=== PATIENT | male | born 1980 | race Caucasian/White ===

== ENCOUNTER 2017-03-07 15:16 | Emergency (ER) | payer SELFPAY ==
[~2017-03-07] VITALS: Ht 175.3 cm; Wt 81.6 kg
--- OUTSIDE RECORDS SUMMARY | 2017-03-07 15:23 | XMS REPORT ---
Author Author Carmina Macedo Organization [facility] Address [address] [place] [address] Care Team Providers Care First Beater Name Role Phone Carmina Macedo Unavailable PROBLEMS Type Condition ICD9-CM Code [id number] Code Onset Dates Condition Status SNOMED Code Problem Eczema of both hands L30.9 Active 868390367 Assessment Eczema of both hands L30.9 Feb, Active 878660265 Assessment Rash R21 Feb, Active 888952190 Assessment Prurigo L28.2 Feb, Active 97682122 ALLERGIES Substance Reaction Event Type Date Status N.K.D.A. Unknown Non Drug Allergy Feb, Unknown SOCIAL HISTORY No smoking Hx information available PLAN OF CARE Activity Details Pending Test Aerobic Bacterial Culture 4 Weeks,Reason: VITAL SIGNS Heart Rate 110 /min 2016-02-23 Height 70 in 2016-02-23 Weight 181.5 lbs 2016-02-23 BMI 26.04 kg/m2 2016-02-23 MEDICATIONS Medication Instructions Dosage Frequency Start Date End Date Duration Status Zoloft Active Clobetasol Propionate 0.05 % Externally Twice a day until clear thin layer to rash areas Feb, 30 days Active RESULTS Name Result Date Reference Range Aerobic Bacterial Culture Aerobic Bacterial Culture PROCEDURES Procedure Date Ordered Related Diagnosis Body Site Office Visit, New Pt., Level 3 Feb 23, 2016 IMMUNIZATIONS No Known Immunizations
--- OUTSIDE RECORDS SUMMARY | 2017-03-07 15:23 | XMS REPORT | Continuity of Care Document ---
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 <effectiveTime value="[id number]" /> <value unit="" xsi:type="PQ" value="SEE NOTES" /> < referenceRange> <observationRange> <text /> < /observationRange> </referenceRange> </observation> </ component> <component> <observation moodCode="EVN" classCode="OBS"> <templateId root="216.840.1.827147.10...4.2" /> <id nullFlavor="NA" /> <code codeSystem="local" code="ISNA" displayName= "SODIUM POCT" /> <statusCode code="completed" /> < effectiveTime value="[id number]" /> <value unit="mmol/L" xsi:type="PQ " value="141" /> <referenceRange> <observationRange> <text>138-146</text> </observationRange> </ referenceRange> </observation> </component> <component> <observation moodCode="EVN" classCode="OBS"> <templateId root= "216.840.1.934862.10..22.4.2" /> <id nullFlavor="NA" /> < code codeSystem="local" code="ISK" displayName="POTASSIUM POCT" /> < statusCode code="completed" /> <effectiveTime value="305239161929" /> <value unit="mmol/L" xsi:type="PQ" value="3.4" /> < interpretationCode codeSystem="local" code="L" /> <referenceRange> <observationRange> <text>3.5-4.9</text> </ observationRange> </referenceRange> </observation> </ component> <component> <observation moodCode="EVN" classCode="OBS"> <templateId root="216.840.1.736303.10...4.2" /> <id nullFlavor="NA" /> <code codeSystem="local" code="ISCL" displayName= "CHLORIDE POCT" /> <statusCode code="completed" /> < effectiveTime value="[id number]" /> <value unit="mmol/L" xsi:type="PQ " value="104" /> <referenceRange> <observationRange> <text>98-109</text> </observationRange> </ referenceRange> </observation> </component> <component> <observation moodCode="EVN" classCode="OBS"> <templateId root= "216.840.1.914314.10..22.4.2" /> <id nullFlavor="NA" /> < code codeSystem="local" code="MITCO2" displayName="MEASURED TOTAL CO2 POCT" /> <statusCode code="completed" /> <effectiveTime value= "" /> <value unit="meq/L" xsi:type="PQ" value="20" /> <interpretationCode codeSystem="local" code="L" /> <referenceRange > <observationRange> <text>24-29</text> </ observationRange> </referenceRange> </observation> </ component> <component> <observation moodCode="EVN" classCode="OBS"> <templateId root="04.01.840.1.135653.12.03.21.4.2" /> <id nullFlavor="NA" /> <code codeSystem="local" code="ISBUN" displayName= "BUN POCT" /> <statusCode code="completed" /> <effectiveTime value="" /> <value unit="mg/dL" xsi:type="PQ" value="15" / > <referenceRange> <observationRange> <text>8- 26</text> </observationRange> </referenceRange> </ observation> </component> <component> <observation moodCode= "EVN" classCode="OBS"> <templateId root="04.01.840.1.980078.10...4.2 " /> <id nullFlavor="NA" /> <code codeSystem="local" code= "ISCREA" displayName="CREATININE POCT" /> <statusCode code="completed" /> <effectiveTime value="" /> <value unit="mg/dL" xsi:type="PQ" value="0.8" /> <referenceRange> < observationRange> <text>0.6-1.3</text> </ observationRange> </referenceRange> </observation> </ component> <component> <observation moodCode="EVN" classCode="OBS"> <templateId root="216.840.1.763113.10...4.2" /> <id nullFlavor="NA" /> <code codeSystem="local" code="ISGLU" displayName= "GLUCOSE POCT" /> <statusCode code="completed" /> < effectiveTime value="" /> <value unit="mg/dL" xsi:type="PQ " value="96" /> <referenceRange> <observationRange> <text>70-105</text> </observationRange> </ referenceRange> </observation> </component> <component> <observation moodCode="EVN" classCode="OBS"> <templateId root= "04.01.840.1.307378.12.03.21.4.2" /> <id nullFlavor="NA" /> < code codeSystem="local" code="ISICA" displayName="IONIZED CALCIUM POCT" /> <statusCode code="completed" /> <effectiveTime value=" " /> <value unit="mmol/L" xsi:type="PQ" value="1.11" /> < interpretationCode codeSystem="local" code="L" /> <referenceRange> <observationRange> <text>1.12-1.32</text> </ observationRange> </referenceRange> </observation> </ component> </organizer> </entry> <entry> <organizer moodCode="EVN" classCode="BATTERY"> <templateId root="216.840.1.297728.10..22.4.1" /> <id nullFlavor="NA" /> <code codeSystem="local" code="DGABU" displayName="DRUG SCREEN URINE" /> <statusCode code="completed" /> < component> <observation moodCode="EVN" classCode="OBS"> < templateId root="04.01.840.1.329388.12.03.21.4.2" /> <id nullFlavor="NA " /> <code codeSystem="local" code="MICHAEL" displayName="BARBITURATE, URINE" /> <statusCode code="completed" /> <effectiveTime value ="" /> <value unit="" xsi:type="PQ" value="NEGATIVE" /> <referenceRange> <observationRange> <text> NEGATIVE</text> </observationRange> </referenceRange> </observation> </component> <component> <observation moodCode ="EVN" classCode="OBS"> <templateId root= "04.01.840.1.021581.12.03.21.4.2" /> <id nullFlavor="NA" /> < code codeSystem="local" code="DEBBI" displayName="BENZODIAZEPINE, URINE" /> <statusCode code="completed" /> <effectiveTime value=" " /> <value unit="" xsi:type="PQ" value="NEGATIVE" /> < referenceRange> <observationRange> <text>NEGATIVE</text > </observationRange> </referenceRange> </observation > </component> <component> <observation moodCode="EVN" classCode="OBS"> <templateId root="04.01.840.1.823250.10.4.2" /> <id nullFlavor="NA" /> <code codeSystem="local" code="AMPH" displayName="AMPHETAMINE, URINE" /> <statusCode code="completed" /> <effectiveTime value="" /> <value unit="" xsi:type= "PQ" value="POSITIVE" /> <interpretationCode codeSystem="local" code="A " /> <referenceRange> <observationRange> <text> NEGATIVE</text> </observationRange> </referenceRange> </observation> </component> <component> <observation moodCode ="EVN" classCode="OBS"> <templateId root= "16.840.1.262201.10..4.2" /> <id nullFlavor="NA" /> < code codeSystem="local" code="THC" displayName="THC, URINE" /> < statusCode code="completed" /> <effectiveTime value="" /> <value unit="" xsi:type="PQ" value="NEGATIVE" /> < referenceRange> <observationRange> <text>NEGATIVE</text > </observationRange> </referenceRange> </observation > </component> <component> <observation moodCode="EVN" classCode="OBS"> <templateId root="840.1.164788.10.4.2" /> <id nullFlavor="NA" /> <code codeSystem="local" code="COCAN" displayName="COCAINE, URINE" /> <statusCode code="completed" /> <effectiveTime value="" /> <value unit="" xsi:type="PQ" value="NEGATIVE" /> <referenceRange> <observationRange> <text>NEGATIVE</text> </observationRange> </ referenceRange> </observation> </component> <component> <observation moodCode="EVN" classCode="OBS"> <templateId root= "840.1.957255.12.03.21.4.2" /> <id nullFlavor="NA" /> < code codeSystem="local" code="OPIA" displayName="OPIATES, URINE" /> < statusCode code="completed" /> <effectiveTime value="" /> <value unit="" xsi:type="PQ" value="NEGATIVE" /> < referenceRange> <observationRange> <text>NEGATIVE</text > </observationRange> </referenceRange> </observation > </component> <component> <observation moodCode="EVN" classCode="OBS"> <templateId root="2.16.840.1.777291.10.20.22.4.2" /> <id nullFlavor="NA" /> <code codeSystem="local" code="PCPU" displayName="PHENCYCLIDINE, URINE SCREEN" /> <statusCode code= "completed" /> <effectiveTime value="[id number]" /> <value unit="" xsi:type="PQ" value="NEGATIVE" /> <referenceRange> < observationRange> <text>NEGATIVE</text> </ observationRange> </referenceRange> </observation> </ component> <component> <observation moodCode="EVN" classCode="OBS"> <templateId root="2.16.840.1.399626.10.20.22.4.2" /> <id nullFlavor="NA" /> <code codeSystem="local" code="ALCU" displayName= "ALCOHOL, URINE" /> <statusCode code="completed" /> < effectiveTime value="[id number]" /> <value unit="" xsi:type="PQ" value="NEGATIVE" /> <referenceRange> <observationRange> <text>NEGATIVE</text> </observationRange> </ referenceRange> </observation> </component> </organizer> </entry ></section> Encounters ACCT No. Visit Date/Time Discharge Status Pt. Type Provider Facility Loc./Unit Complaint [id number] 08/19/2016 16:56:54 08/19/2016 23:59:59 [facility] [id number] 07/21/2016 09:39:39 07/21/2016 23:59:59 [facility] Outpatient [facility] CCTXR [id number] 11/13/2011 04:20:00 Document Registration [id number] 08/13/2016 08:54:23 08/13/2016 23:59:00 DIS Outpatient TESSA LI [facility] [id number] 06/18/2016 10:49:00 06/18/2016 13:14:00 DIS Emergency CYN MOREL [facility] [id number] 02/23/2016 18:15:00 02/23/2016 23:59:00 DIS Outpatient AYESHA MOSS [facility] TRIXIE
--- NOTE | 2017-03-07 18:29 | ED Respiratory ---
General Chief Complaint: Cough/Cold/Flu Symptoms Stated Complaint: COUGH Nursing Triage Note: TO TRIAGE ROOM. COMPLAINS OF SOA AND PAIN IN RIGHT LUNG X1 WEEK. Source: patient Exam Limitations: no limitations History of Present Illness Date Seen by Provider: Mar 07, 2017 Time Seen by Provider: 18:20 Initial Comments Here with a week of pain in the right chest as well as cough and runny nose. Denies nausea, vomiting or diarrhea. He was worried about pneumonia. Does complain of rather significant nasal congestion and postnasal drip. Mucinex is not helping. Timing/Duration: week, getting worse Severity: moderate Prior Episodes/Possible Cause: occasional episodes Associated Symptoms: cough, No fever/chills, nasal congestion, nasal drainage, No shortness of breath, sore throat Allergies and Home Medications Allergies Coded Allergies: No Known Drug Allergies (Unverified , 03/07/17) Home Medications No Active Prescriptions or Reported Meds Constitutional: see HPI, No chills, No fever EENTM: nose congestion, throat pain Respiratory: cough, short of breath Cardiovascular: no symptoms reported Gastrointestinal: no symptoms reported Musculoskeletal: no symptoms reported Skin: no symptoms reported All Other Systems Reviewed Negative Unless Noted: Yes Past Pdipyop-Gokaau-Mxffvh Hx Patient Social History Alcohol Use: Occasionally Uses Recreational Drug Use: Yes (MARIJUANA) Smoking Status: Current Everyday Smoker Type Used: Cigarettes Recent Foreign Travel: No Contact w/Someone Who Travel: No Recent Infectious Disease Expo: No Respiratory History of Respiratory Disorde: No Cardiovascular History of Cardiac Disorders: No Neurological History of Neurological Disord: No Genitourinary History of Genitourinary Disor: No Gastrointestinal History of Gastrointestinal Di: No Musculoskeletal History of Musculoskeletal Dis: No Endocrine History of Endocrine Disorders: No HEENT History of HEENT Disorders: No Cancer History of Cancer: No Psychosocial History of Psychiatric Problem: No Integumentary History of Skin or Integumenta: No Blood Transfusions History of Blood Disorders: No Reviewed Nursing Assessment Reviewed/Agree w Nursing PMH: Yes Family Medical History Significant Family History: No Pertinent Family Hx Physical Exam Vital Signs Vital Sign - Last 12Hours 03/07/17 16:25 Temp 98.3 Pulse 88 Resp 18 B/P (MAP) 119/86 (97) Pulse Ox 97 O2 Delivery Room Air Capillary Refill : Less Than 3 Seconds General Appearance: WD/WN, no apparent distress HEENT: pharyngeal erythema, No tonsillar exudate, other (moderate bilateral nasal congestion with clear rhinorrhea and moderate erythema) Neck: full range of motion, supple Respiratory: lungs clear, normal breath sounds Cardiovascular: regular rate, rhythm, no murmur Gastrointestinal: non tender, soft Neurologic/Psychiatric: alert, oriented x 3 Skin: normal color, warm/dry Progress/Results/Core Measures Suspected Sepsis Recent Fever Within 48 Hours: No Infection Criteria Present: Suspected New Infection New/Unexplained Altered Menta: No Sepsis Screen: No Definite Risk Sepsis Diagnosis: SIRS Temperature:98.3 Pulse: 88 Respiratory Rate: 18 Blood Pressure 119 /86 Mean: 97 Results/Orders My Orders Orders - SULTANA BERMUDEZ MD Chest Pa/Lat (2 View) (03/07/17 18:28) Decadron 10 Mg Im (03/07/17 19:05) Vital Signs/I&O Vital Sign - Last 12Hours 03/07/17 03/07/17 16:25 18:02 Temp 98.3 Pulse 88 Resp 18 B/P (MAP) 119/86 (97) Pulse Ox 97 O2 Delivery Room Air Room Air Capillary Refill : Less Than 3 Seconds Blood Pressure Mean: 97 Progress Note : Progress Note Seen and evaluated. Two-view chest x-ray ordered. This was negative. Decadron 10 mg IM. Discharged home with return precautions. Patient verbalize understanding instructions and agreement with plan. Diagnostic Imaging Diagonstic Imaging: Xray Plain Films/CT/US/NM/MRI: chest Comments VIA [facility]. [place], [place] NAME: JUAN RCHEL [employer] REC#: [id number] PT STATUS: REG ER : 1980 PHYSICIAN: SULTANA BERMUDEZ MD ADMIT DATE: 03/07/17/ER Draft Date of Exam:03/07/17 CHEST PA/LAT (2 VIEW) CLINICAL INDICATION: Patient with cough. EXAM: Chest x-ray, PA and lateral views. COMPARISONS: None. FINDINGS: Lungs/pleura: Lungs are clear. There is no pneumothorax. There is no pleural effusion. Mediastinum: Unremarkable. Pulmonary vasculature: Unremarkable. Heart: Unremarkable. Bones/extrathoracic soft tissue: Unremarkable. IMPRESSION: There is no radiographic evidence of acute cardiopulmonary process. Dictated on workstation # [id number] Dict: 03/07/17 1840 Trans: 03/07/17 1841 [id number] Interpreted by: JON MELARA MD Electronically signed by: Departure Impression Impression: Primary Impression: Upper respiratory infection Qualified Codes: J06.9 - Acute upper respiratory infection, unspecified Disposition: HOME, SELF-CARE Condition: Improved Departure-Patient Inst. Decision time for Depature: 19:10 Referrals: NO,LOCAL PHYSICIAN (PCP/Family) Primary Care Physician Patient Instructions: Viral Upper Respiratory Infection, Adult (DC) Add. Discharge Instructions: All discharge instructions reviewed with patient and/or family. Voiced understanding. You may use ibuprofen 800 mg every 8 hours as needed for pain. You may take Tylenol or the generic acetaminophen 1000 mg every 8 hours as needed for pain. Drink plenty of fluids. You may use Afrin nasal spray or the generic, 12 hour relief, 2 sprays to each nostril twice daily for 3 days only and then stop. Do not use for more than 3 days. Return for worse pain, fever, vomiting, weakness , breathing problems or other concerns as needed. Scripts No Active Prescriptions or Reported Meds SULTANA BERMUDEZ MD Mar 07, 2017 18:29
--- NOTE | 2017-03-07 18:42 | Diagnostic Imaging Report ---
CLINICAL INDICATION: Patient with cough. EXAM: Chest x-ray, PA and lateral views. COMPARISONS: None. FINDINGS: Lungs/pleura: Lungs are clear. There is no pneumothorax. There is no pleural effusion. Mediastinum: Unremarkable. Pulmonary vasculature: Unremarkable. Heart: Unremarkable. Bones/extrathoracic soft tissue: Unremarkable. IMPRESSION: There is no radiographic evidence of acute cardiopulmonary process. Dictated by: Dictated on workstation # [id number]
[2017-03-07] MEDS ORDERED: DEXAMETHASONE PF 10 MG/ML (DECADRON) VIAL IM STA (19:05)
[2017-03-07] MEDS ORDERED: DEXAMETHASONE 10 MG/ML (DECADRON) 1 ML VIAL ONE ×2 (19:18)
[2017-03-07] MEDS ORDERED: DEXAMETHASONE 10 MG/ML (DECADRON) 1 ML VIAL IM ONE (19:30)
[2017-03-07 19:31] VITALS: BP 130/78
== END 2017-03-07 19:31 | disposition home or self-care (01) ==
LOC: ER 15:20
DX: J06.9 Acute upper respiratory infection, unspecified (principal); F12.90 Cannabis use, unspecified, uncomplicated; F17.210 Nicotine dependence, cigarettes, uncomplicated
CPT/HCPCS: 71046; 96372; 99284